=== PATIENT | male | born 1970 | race African-American/Black ===

== ENCOUNTER 2017-04-22 10:32 | Emergency (ER) | payer MEDICARE, MEDICAID ==
[~2017-04-22] VITALS: Ht 180.3 cm; Wt 80.0 kg
[2017-04-22] MEDS ORDERED: KETOROLAC 60MG/2ML VIAL IM ONE (12:45)
[2017-04-22 16:48] VITALS: BP 117/76
== END 2017-04-22 16:49 | disposition home or self-care (01) ==
LOC: ER 10:32
DX: E11.65 Type 2 diabetes mellitus with hyperglycemia (principal); M79.605 Pain in left leg; M79.602 Pain in left arm; I11.0 Hypertensive heart disease with heart failure; I50.9 Heart failure, unspecified; Z88.8 Allergy status to other drugs, medicaments and biological substances
CPT/HCPCS: 82962; 93005; 96372; 99283; J1885